=== PATIENT | male | born 1985 | race Caucasian/White ===

== ENCOUNTER 2017-02-25 22:41 | Emergency (ER) | payer OTHER ==
[2017-02-25 22:54] VITALS: BMI 32.3
[2017-02-25 23:09] VITALS: RESP 18; TEMP 99.2
--- NOTE | 2017-02-25 23:39 | ED PDOC ---
Arrival/HPI - General Chief Complaint: Lower Extremity Problem/Injury Time Seen by Provider: 02/25/17 23:33 Historian: Patient - History of Present Illness Narrative History of Present Illness (Text): 02/25/17 23:33 This 31 yo male presents to this ED c/o left foot pain x 5 hours. Patient stated a ladder fell on his left foot while at work. Patient stated pain is worsen. Foot is swollen. Denies ankle or toes pain. Patient is able to move toes, and move ankle. Denies other complains. Time/Duration: 4-6 hours Quality: Aching Context: Work Past Medical History - Provider Review Nursing Documentation Reviewed: Yes - Infectious Disease Hx of Infectious Diseases: None - Musculoskeletal/Rheumatological Hx Falls: No - Psychiatric Hx Substance Use: No - Anesthesia Hx Anesthesia: Yes Hx Anesthesia Reactions: No Hx Malignant Hyperthermia: No - Suicidal Assessment Feels Threatened In Home Enviroment: No Family/Social History - Physician Review Nursing Documentation Reviewed: Yes Family/Social History: Other (non-contributory) Smoking Status: Never Smoked Hx Alcohol Use: No Hx Substance Use: No Allergies/Home Meds Allergies/Adverse Reactions: Allergies No Known Allergies Allergy (Verified 02/25/17 22:53) Review of Systems - Review of Systems Constitutional: Normal. absent: Fatigue, Weight Change, Fevers, Night Sweats Eyes: Normal ENT: Normal Respiratory: Normal Cardiovascular: Normal Gastrointestinal: Normal Genitourinary Male: Normal Musculoskeletal: Other (foot pain) Skin: Normal Neurological: Normal Endocrine: Normal Hemo/Lymphatic: Normal Psychiatric: Normal Physical Exam Vital Signs Temp Pulse Resp BP Pulse Ox 02/25/17 23:08 99.2 F 103 H 18 147/86 97 Temperature: Afebrile Blood Pressure: Normal Pulse: Regular Respiratory Rate: Normal Appearance: Positive for: Well-Appearing, Non-Toxic, Comfortable Pain Distress: None Mental Status: Positive for: Alert and Oriented X 3 - Systems Exam Head: Present: Atraumatic, Normocephalic Pupils: Present: PERRL Extroacular Muscles: Present: EOMI Conjunctiva: Present: Normal Mouth: Present: Moist Mucous Membranes Neck: Present: Normal Range of Motion Upper Extremity: Present: Normal Inspection, Normal ROM, NORMAL PULSES, Neurovascularly Intact, Capillary Refill < 2s Lower Extremity: Present: NORMAL PULSES, Tenderness ((+) left dorsal foot is swollen and tender), Swelling, Neurovascularly Intact, Capillary Refill < 2 s. No: Edema, CALF TENDERNESS Neurological: Present: GCS=15, CN II-XII Intact, Speech Normal, Motor Func Grossly Intact, Normal Sensory Function, Normal Cerebellar Funct Skin: Present: Warm, Dry, Normal Color. No: Rashes Psychiatric: Present: Alert, Oriented x 3 Medical Decision Making ED Course and Treatment: 02/26/17 01:00 Re-evaluation. Patient feels better. Discussed results and plan with patient who expresses understanding. All questions answered and there is agreement with the plan to discharge home with instructions. Patient stable for discharge. Return if symptoms persist or worsen. Re-evaluation Time: 01:00 Reassessment Condition: Re-examined, Improved - RAD Interpretation Narrative RAD Interpretations (Text): 02/26/17 01:00 Foot x-rays: (+) left 2nd metatarsal bone non-displaced Fx Radiology Orders: 02/25/17 23:34 FOOT LEFT 3 VIEWS ROUTINE [RAD] Stat - Medication Orders Current Medication Orders: Discontinued Medications Ibuprofen (Motrin Tab) 600 mg PO STAT STA Stop: 02/25/17 23:35 Last Admin: 02/25/17 23:40 Dose: 600 mg - Procedure PROCEDURE NOTE (Text): 02/26/17 01:00 PROCEDURE: SPLINT APPLICATION Applied by Emergency Provider. Location: left foot Procedure: The area of the splint was appropriately positioned. A 5 inch ortho glass posterior foot/ankle splint was applied. Post-procedure: Good position. Neurovascular status remains intact.~ Capi;; sandrine < 2 sec. Patient tolerated the procedure well with no immediate complications Disposition/Present on Arrival - Present on Arrival Any Indicators Present on Arrival: No History of DVT/PE: No History of Uncontrolled Diabetes: No Urinary Catheter: No History of Decub. Ulcer: No History Surgical Site Infection Following: None - Disposition Have Diagnosis and Disposition been Completed?: Yes Diagnosis: Metatarsal bone fracture Disposition: HOME/ ROUTINE Disposition Time: 01:04 Patient Plan: Discharge Condition: GOOD Discharge Instructions (ExitCare): Foot Fracture in Adults (ED) Additional Instructions: Call workers comp for further instruction on who to follow up . If workers comp agrees, you can see compensation programs manager who is nitric acid concentrator operator today. Keep foot elevated, rest, crutches, ice, splint till compensation programs manager clears you. Return to emergency if foot pain worsen. Prescriptions: Famotidine [Pepcid] 40 mg PO DAILY #10 tablet Naproxen 500 mg PO BID PRN #14 tab PRN Reason: Pain, Severe (8-10) Referrals: Akhil Lu MD [Primary Care Provider] - Follow up with primary Angelica Hui DPM [Staff Provider] - Follow up with primary Forms: [facility] (Guyanese), WORK NOTE
[2017-02-26 01:36] VITALS: BP 135/85; PULSE 86; O2SAT 98
--- NOTE | 2017-02-26 09:11 | RAD ---
PROCEDURE: Left Foot Radiographs. HISTORY: pain s/p trauma COMPARISON: None. FINDINGS: BONES: There is a nondisplaced fracture of the mid diaphysis of the left 2nd metatarsal bone. No dislocation. JOINTS: Normal. SOFT TISSUES: Normal. OTHER FINDINGS: None. IMPRESSION: Nondisplaced fracture left 2nd metatarsal bone. No dislocation. The remainder of the examination appears normal.
== END 2017-02-26 01:38 | disposition home or self-care (01) ==
LOC: ED 22:41
DX: S92.325A Nondisplaced fracture of second metatarsal bone, left foot, initial encounter for closed fracture (principal); W22.8XXA Striking against or struck by other objects, initial encounter; Y93.89 Activity, other specified; Y92.89 Other specified places as the place of occurrence of the external cause; Y99.8 Other external cause status